=== PATIENT | male | born 1970 | race African-American/Black ===

== ENCOUNTER 2023-03-09 12:31 | Emergency (ER) | payer OTHER, MEDICAID ==
[~2023-03-09] VITALS: Ht 175.3 cm; Wt 104.0 kg
[2023-03-09 12:46] VITALS: BP 149/88; PULSE 74; RESP 20; TEMP 98.2; O2SAT 98
[2023-03-09] MEDS ORDERED: NATE120T MT (13:11)
[2023-03-09] MEDS ORDERED: METO-539 MT (13:11)
[2023-03-09] MEDS ORDERED: PRED10TA MT (13:11)
[2023-03-09] MEDS ORDERED: MYCO360T3 MT (13:11)
[2023-03-09] MEDS ORDERED: TACR1CAP MT (13:11)
[2023-03-09] MEDS ORDERED: AMLO5TAB88 MT (13:11)
== END 2023-03-09 13:35 | disposition home or self-care (01) ==
LOC: ER 12:31
DX: Z76.0 Encounter for issue of repeat prescription (principal); E11.9 Type 2 diabetes mellitus without complications; I10 Essential (primary) hypertension; Z79.899 Other long term (current) drug therapy
CPT/HCPCS: 99283

== ENCOUNTER 2023-03-22 17:20 | Emergency (ER) | payer MEDICAID, OTHER ==
[~2023-03-22] VITALS: Ht 182.9 cm; Wt 103.1 kg
[~2023-03-22 17:20] MED LIST: AMLO5TAB88 MT; METO-539 MT; MYCO360T3 MT; NATE120T MT; PRED10TA MT; TACR1CAP MT
[2023-03-22 18:32] VITALS: BP 144/79; PULSE 78; RESP 16; TEMP 99; O2SAT 100
[2023-03-22] MEDS ORDERED: AMLO5TAB88 MT (23:15)
[2023-03-22] MEDS ORDERED: NATE120T MT (23:15)
[2023-03-22] MEDS ORDERED: TACR1CAP MT (23:15)
[2023-03-22] MEDS ORDERED: PANT40TA51 MT (23:15)
[2023-03-22] MEDS ORDERED: PRED10TA MT (23:15)
[2023-03-22] MEDS ORDERED: METO-539 MT (23:15)
[2023-03-22] MEDS ORDERED: INSU100V51 INJ (23:15)
[2023-03-22] MEDS ORDERED: MYCO360T3 MT (23:15)
== END 2023-03-22 21:21 | disposition left against medical advice (07) ==
LOC: ER 17:20
DX: Z76.0 Encounter for issue of repeat prescription (principal); Z53.21 Procedure and treatment not carried out due to patient leaving prior to being seen by health care provider
CPT/HCPCS: 99281

== ENCOUNTER 2023-03-22 22:32 | Emergency (ER) | payer OTHER ==
[~2023-03-22] VITALS: Ht 188 cm; Wt 87.0 kg
[2023-03-22 22:40] VITALS: BP 136/82; PULSE 68; RESP 18; TEMP 97.9; O2SAT 98
[2023-03-22] MEDS ORDERED: METO-539 MT (23:15)
[2023-03-22] MEDS ORDERED: MYCO360T3 MT (23:15)
[2023-03-22] MEDS ORDERED: PRED10TA MT (23:15)
[2023-03-22] MEDS ORDERED: NATE120T MT (23:15)
[2023-03-22] MEDS ORDERED: AMLO5TAB88 MT (23:15)
[2023-03-22] MEDS ORDERED: INSU100V51 INJ (23:15)
[2023-03-22] MEDS ORDERED: PANT40TA51 MT (23:15)
[2023-03-22] MEDS ORDERED: TACR1CAP MT (23:15)
== END 2023-03-22 23:28 | disposition home or self-care (01) ==
LOC: ER 22:47
DX: E11.9 Type 2 diabetes mellitus without complications (principal); I10 Essential (primary) hypertension; Z79.899 Other long term (current) drug therapy; Z76.0 Encounter for issue of repeat prescription
CPT/HCPCS: 99281